=== PATIENT | male | born 1950 | race Caucasian/White ===

== ENCOUNTER 2017-09-19 22:11 | Inpatient (IN) | payer OTHER ==
[~2017-09-19] VITALS: Ht 182.9 cm; Wt 98.0 kg
[2017-09-19] MEDS ORDERED: SODIUM BICARBONATE 8.4 % INJ 50ML VIAL IV ONE (22:40)
[2017-09-19] MEDS ORDERED: EPINEPHrine HCL 1 MG/10 ML SYRG ONE (22:41)
[2017-09-19] MEDS: LIDOCAINE 4MG/ML IV SOLN 500 ML IV SCH (23:03)
[2017-09-19 23:04] LABS: Basophils # (auto) 0 uL; Basophils % (auto) 0.5 % (0.0-2.0); Eosinophils # (auto) 0.1 uL; Eosinophils % (auto) 0.6 % (0.0-7.0); Hematocrit 44.6 % (41.0-53.0); Hemoglobin 14.1 g/dL (13.5-17.5); Lymphocytes # (auto) 4.6 uL; Lymphocytes % (auto) 50.1 % (10.0-50.0); Mean Corpuscular Hgb Conc. 31.7 g/dL (32.0-36.0); Mean Corpuscular Volume 91.4 fL (80.0-100.0); Mean Platelet Volume 9.5 fL (6.9-10.8); Monocytes # (auto) 0.7 uL; Neutrophils # (auto) 3.7 uL; Neutrophils % (auto) 40.8 % (37.0-80.0); Nucleated Red Blood Cells % 0.1 %; Platelet Count (auto) 211 10^3/uL (140-450); White Blood Cell 9.2 10^3/uL (4.4-10.8)
[2017-09-19 23:11] LABS: Urine Bilirubin Negative (Negative); Urine Blood 1+ /uL (Negative); Urine Color Yellow (Yellow); Urine Glucose Normal (Normal); Urine Ketone Negative (Negative); Urine Mucus FEW (None Seen); Urine Nitrite Negative (Negative); Urine RBC 14 /hpf (0 - 3); Urine Sperm PRESENT /hpf (None Seen); Urine Urobilinogen Normal (Negative)
[2017-09-19 23:21] LABS: INR 1.02 (0.9-1.15); Partial Thromboplastin Time 28.7 sec (22.64-33.71); Prothrombin Time 11.1 sec (9.37-12.3)
[2017-09-19 23:23] LABS: Calcium 10.6 mg/dL (8.5-10.1); Magnesium 2.9 mg/dL (1.6-2.6)
[2017-09-19 23:35] LABS: Bilirubin, Total 0.2 mg/dL (0.2-1.0); Total Protein 6.7 g/dL (6.4-8.2)
[2017-09-19 23:38] LABS: Potassium 2.9 mmol/L (3.5-5.1)
[2017-09-20] VITALS (35 sets, daily range): BP systolic 69–120; BP diastolic 52–74
[2017-09-20] MEDS ORDERED: POTASSIUM CHL 20MEQ/50ML 50 ML IV ONE (00:15)
[2017-09-20] MEDS ORDERED: DOPamine 1600MCG/ML D5W 250 ML IV ONE ×2 (00:15→01:05)
[2017-09-20] MEDS ORDERED: SODIUM BICARBONATE 50ML VIAL 100 ML in SODIUM CHLORIDE 0.9% 1,000 ML IV ONE (00:15)
[2017-09-20] MEDS ORDERED: POTASSIUM CHL 10% (20 MEQ/15ML) 15ml ORAL SOLN NG ONE (00:15)
[2017-09-20 00:20] LABS: Allen Test Yes; Base Excess -13.2 mmol/L (-2.0-2.0); Blood 02Sat 97.1 % (96-100); Blood COHb 0.3 % (0.5-1.5); Blood MetHb 0.3 % (0.0-1.5); HCO3 16.8 mmol/L (22-26.0); HHb 2.9 % (0.0-5.0); MODE VENT - A/C; O2Hb 96.5 % (94.0-97.0); PCO2 54.5 mmHg (35.0-45.0); PCO2(T) 54.5 mmHg (35.0-45.0); PO2 149.9 mmHg (80.0-100.0); PO2(T) 149.9 mmHg (80.0-100.0); Sample Type Arterial; pH 7.106 (7.350-7.450)
[2017-09-20] MEDS: MIDAZOLAM DRIP 50 mg/50mL 50 ML IV SCH ×2 (00:58→23:30)
[2017-09-20] MEDS ORDERED: LEVOFLOXACIN 750MG 150 ML IV ONE (01:15)
[2017-09-20] MEDS ORDERED: ONDANSETRON HCL 4 MG/2 ML VIAL IV PRN (02:00)
[2017-09-20] MEDS ORDERED: NITROGLYCERIN 0.4 MG SL TAB SL PRN (02:00)
[2017-09-20] MEDS ORDERED: HYDROmorphone HCL 2 MG/ML VL IV PRN (02:00)
[2017-09-20] MEDS: SODIUM CHLORIDE 0.9% 1,000 ML IV SCH ×2 (02:35→16:09)
[2017-09-20] MEDS: fentaNYL Drip 2500mCg/250mlNS 250 ML IV SCH (03:24)
[2017-09-20] MEDS: NOREPINEPHRINE 8 MG/250ML KIT 250 ML IV SCH ×2 (04:06→23:30)
[2017-09-20 04:18] LABS: Allen Test Yes; Base Excess -6.2 mmol/L (-2.0-2.0); Blood 02Sat 87.8 % (96-100); Blood COHb 0.4 % (0.5-1.5); Blood MetHb 0.2 % (0.0-1.5); HCO3 22.6 mmol/L (22-26.0); HHb 12.1 % (0.0-5.0); MODE VENT - A/C; O2Hb 87.3 % (94.0-97.0); PO2 65.3 mmHg (80.0-100.0); PO2(T) 65.3 mmHg (80.0-100.0); Room 1033-ERT; Sample Type Arterial; pH 7.209 (7.350-7.450)
[2017-09-20 09:16] LABS: Allen Test Yes; Base Excess -3.7 mmol/L (-2.0-2.0); Blood 02Sat 94.2 % (96-100); Blood COHb 0.6 % (0.5-1.5); Blood MetHb 0.3 % (0.0-1.5); HCO3 22.1 mmol/L (22-26.0); HHb 5.7 % (0.0-5.0); MODE VENT - A/C; O2Hb 93.4 % (94.0-97.0); PCO2 42.8 mmHg (35.0-45.0); PCO2(T) 42.8 mmHg (35.0-45.0); PO2 77.7 mmHg (80.0-100.0); PO2(T) 77.7 mmHg (80.0-100.0); Room 1033-ERT; Sample Type Arterial; pH 7.331 (7.350-7.450)
[2017-09-20] MEDS: ENOXAPARIN SOD 30 MG/0.3 ML SYRINGE SC SCH (10:00)
[2017-09-20 10:03] LABS: Lactic Acid w/Reflex 6.1 mmol/L (0.4-2.0)
[2017-09-20 10:06] LABS: REFLEX LACTIC ACID YES OR NO YES
[2017-09-20] MEDS: PANTOPRAZOLE 40 MG/10 ML VIAL IV SCH (10:25)
[2017-09-20] MEDS: LIDOCAINE 4MG/ML IV SOLN 500 ML IV SCH ×2 (12:00→22:29)
[2017-09-20 12:39] LABS: Albumin 3.1 g/dL (3.4-5.0); BUN/Creatinine Ratio 14.3; Bilirubin, Total 0.8 mg/dL (0.2-1.0); Calcium 9.6 mg/dL (8.5-10.1); Potassium 3.3 mmol/L (3.5-5.1); Total Protein 6.8 g/dL (6.4-8.2)
[2017-09-20 12:45] LABS: Hemoglobin 14.9 g/dL (13.5-17.5); Mean Corpuscular Hemoglobin 28.9 pg (28.0-32.0); Mean Corpuscular Hgb Conc. 32.4 g/dL (32.0-36.0); Mean Platelet Volume 8.8 fL (6.9-10.8); Platelet Count (auto) 194 10^3/uL (140-450); Red Cell Distribution Width 14.4 % (11.8-14.3); White Blood Cell 13.4 10^3/uL (4.4-10.8)
[2017-09-20 12:53] LABS: Promyelocytes % 0; Reactive Lymphocytes 0
[2017-09-20] MEDS: DOPamine 1600MCG/ML D5W 250 ML IV SCH (13:35)
[2017-09-20 14:35] LABS: Metamyelocytes % 2; Myelocytes % 1; Platelet Estimate Adequate
[2017-09-20 14:37] LABS: Ovalocytes FEW
[2017-09-20] MEDS ORDERED: ACETAMINOPHEN 650 mg PER 20 mL UD PO ONE (17:15)
[2017-09-20] MEDS ORDERED: ACETAMINOPHEN 650 mg PER 20 mL UD ONE (17:26)
[2017-09-20] MEDS ORDERED: PIPERACILLIN-TAZOB 3.375GM 50 ML IV ONE (22:13)
[2017-09-20] MEDS ORDERED: SIMV-8 PO (23:27)
[2017-09-20] MEDS ORDERED: OMEP20CA74 OR (23:27)
[2017-09-20] MEDS ORDERED: POTA10TA51 PO (23:27)
[2017-09-20] MEDS ORDERED: VERA180T14 PO (23:27)
[2017-09-20] MEDS ORDERED: TAMS0.4C36 PO (23:27)
[2017-09-20] MEDS ORDERED: VALS160T53 PO (23:27)
[2017-09-21] VITALS (104 sets, daily range): BP systolic 58–182; BP diastolic 41–115
[2017-09-21 01:20] LABS: Base Excess -6.3 mmol/L (-2.0-2.0); Blood 02Sat 96.7 % (96-100); Blood COHb 1.1 % (0.5-1.5); Blood MetHb 0.6 % (0.0-1.5); HCO3 18.7 mmol/L (22-26.0); HHb 3.2 % (0.0-5.0); MODE VENT - A/C; O2Hb 95.1 % (94.0-97.0); PCO2 36.2 mmHg (35.0-45.0); PO2 97.5 mmHg (80.0-100.0); PO2(T) 100.5 mmHg (80.0-100.0); Sample Type Arterial; Spont Vt 1149; pH 7.332 (7.350-7.450)
[2017-09-21] MEDS: DOPamine 1600MCG/ML D5W 250 ML IV SCH ×3 (02:52→18:54)
[2017-09-21 05:14] LABS: Basophils # (auto) 0 uL; Basophils % (auto) 0.1 % (0.0-2.0); Eosinophils # (auto) 0 uL; Hematocrit 45.2 % (41.0-53.0); Hemoglobin 14.9 g/dL (13.5-17.5); Lymphocytes % (auto) 4.8 % (10.0-50.0); Mean Corpuscular Hemoglobin 28.3 pg (28.0-32.0); Mean Corpuscular Hgb Conc. 32.9 g/dL (32.0-36.0); Mean Corpuscular Volume 86.1 fL (80.0-100.0); Mean Platelet Volume 9.3 fL (6.9-10.8); Monocytes # (auto) 1.3 uL; Monocytes % (auto) 6.4 % (0.0-12.0); Neutrophils % (auto) 88.7 % (37.0-80.0); Platelet Count (auto) 176 10^3/uL (140-450); Red Cell Distribution Width 14.6 % (11.8-14.3); White Blood Cell 20.2 10^3/uL (4.4-10.8)
[2017-09-21 05:23] LABS: Lactic Acid w/Reflex 3.1 mmol/L (0.4-2.0)
[2017-09-21 05:25] LABS: REFLEX LACTIC ACID YES OR NO YES
[2017-09-21 05:29] LABS: Albumin 2.7 g/dL (3.4-5.0); BUN/Creatinine Ratio 17.1; Bilirubin, Total 1.4 mg/dL (0.2-1.0); Calcium 7.9 mg/dL (8.5-10.1); Magnesium 1.7 mg/dL (1.6-2.6); Phosphorus 4.5 mg/dL (2.5-4.90); Total Protein 6.5 g/dL (6.4-8.2)
[2017-09-21] MEDS ORDERED: PIPERACILLIN-TAZOB 3.375GM 50 ML IV ONE (06:20)
[2017-09-21] MEDS: SODIUM CHLORIDE 0.9% 1,000 ML IV SCH ×3 (06:40→23:17)
[2017-09-21] MEDS: MIDAZOLAM DRIP 50 mg/50mL 50 ML IV SCH (06:41)
[2017-09-21] MEDS: NOREPINEPHRINE 8 MG/250ML KIT 250 ML IV SCH ×3 (06:41→23:17)
[2017-09-21 07:33] LABS: Base Excess -6.9 mmol/L (-2.0-2.0); Blood 02Sat 93.1 % (96-100); Blood COHb 1.1 % (0.5-1.5); Blood MetHb 0.4 % (0.0-1.5); HCO3 18.9 mmol/L (22-26.0); HHb 6.8 % (0.0-5.0); MODE VENT - A/C; O2Hb 91.7 % (94.0-97.0); PCO2 38.8 mmHg (35.0-45.0); PCO2(T) 40.4 mmHg (35.0-45.0); PIP 42; PO2 73.3 mmHg (80.0-100.0); PO2(T) 77.9 mmHg (80.0-100.0); Sample Type Arterial; Spont Vt 1172; pH 7.305 (7.350-7.450)
[2017-09-21] MEDS ORDERED: PHENYLEPHRINE IV 250 ML IV ONE (07:54)
[2017-09-21] MEDS ORDERED: SODIUM BICARBONATE 8.4 % INJ 50ML VIAL IV ONE ×2 (08:00→16:00)
[2017-09-21] MEDS: PIPERACILLIN-TAZOB 2.25GM 50 ML IV SCH ×4 (08:22→23:44)
[2017-09-21] MEDS: PHENYLEPHRINE INJ 20 MG in SODIUM CHL 0.9% 250 ML IV SCH ×4 (08:23→20:24)
[2017-09-21] MEDS: LIDOCAINE 4MG/ML IV SOLN 500 ML IV SCH ×2 (09:36→18:54)
[2017-09-21] MEDS: ENOXAPARIN SOD 30 MG/0.3 ML SYRINGE SC SCH ×2 (09:41→10:00)
[2017-09-21] MEDS: ACETAMINOPHEN 650 mg PER 20 mL UD PO PRN (09:41)
[2017-09-21] MEDS: PANTOPRAZOLE 40 MG/10 ML VIAL IV SCH (09:41)
[2017-09-21 10:08] LABS: Base Excess -6.1 mmol/L (-2.0-2.0); Blood 02Sat 90.3 % (96-100); Blood COHb 1.4 % (0.5-1.5); Blood MetHb 0.5 % (0.0-1.5); HCO3 21.9 mmol/L (22-26.0); HHb 9.5 % (0.0-5.0); MODE VENT - A/C; O2Hb 88.6 % (94.0-97.0); PCO2 52.7 mmHg (35.0-45.0); PCO2(T) 56.5 mmHg (35.0-45.0); PIP 21; PO2 66.7 mmHg (80.0-100.0); PO2(T) 74.4 mmHg (80.0-100.0); Sample Type Arterial; Spont Vt 740; pH 7.236 (7.350-7.450)
[2017-09-21] MEDS: VASOPRESSIN 50 UNITS in SODIUM CHL 0.9% 247.5 ML IV SCH (11:00)
[2017-09-21] MEDS: fentaNYL Drip 2500mCg/250mlNS 250 ML IV SCH (11:28)
[2017-09-21 14:53] LABS: Base Excess -6.4 mmol/L (-2.0-2.0); Blood 02Sat 91.7 % (96-100); Blood COHb 1.5 % (0.5-1.5); Blood MetHb 0.4 % (0.0-1.5); HCO3 20.5 mmol/L (22-26.0); HHb 8.1 % (0.0-5.0); MODE VENT - A/C; PCO2 46.2 mmHg (35.0-45.0); PCO2(T) 48.7 mmHg (35.0-45.0); PIP 38; PO2 69.4 mmHg (80.0-100.0); PO2(T) 75.3 mmHg (80.0-100.0); Sample Type Arterial; Spont Vt 585; pH 7.266 (7.350-7.450)
[2017-09-21] MEDS ORDERED: PIPERACILLIN-TAZOB 3.375GM 50 ML IV SCH (22:00)
[2017-09-22] VITALS (71 sets, daily range): BP systolic 6–227; BP diastolic 6–219
[2017-09-22 00:59] LABS: Base Excess -7.2 mmol/L (-2.0-2.0); Blood 02Sat 90.3 % (96-100); Blood COHb 1.4 % (0.5-1.5); Blood MetHb 0.2 % (0.0-1.5); HCO3 21.5 mmol/L (22-26.0); HHb 9.5 % (0.0-5.0); MODE VENT - A/C; O2Hb 88.9 % (94.0-97.0); PCO2 56.7 mmHg (35.0-45.0); PCO2(T) 56.7 mmHg (35.0-45.0); PO2 66.5 mmHg (80.0-100.0); PO2(T) 66.5 mmHg (80.0-100.0); Sample Type Arterial; pH 7.197 (7.350-7.450)
[2017-09-22] MEDS ORDERED: SODIUM BICARBONATE 8.4 % INJ 50ML VIAL IV ONE (01:30)
[2017-09-22] MEDS ORDERED: SODIUM BICARB 50ML SYR 150 ML in D5W 5% 1,000 ML IV SCH (01:30)
[2017-09-22] MEDS ORDERED: SODIUM BICARBONATE 8.4% INJ 50ML SYRINGE ONE (01:31)
[2017-09-22] MEDS: ALBUTEROL SULF 2.5 MG/0.5ML(0.5%) NEB SOLN NEB SCH ×4 (01:48→14:00)
[2017-09-22] MEDS: IPRATROPIUM BROM 0.5 MG/2.5ML INH SOL NEB SCH ×4 (01:48→14:00)
[2017-09-22] MEDS: ACETAMINOPHEN 650 mg PER 20 mL UD PO PRN (02:34)
[2017-09-22] MEDS: fentaNYL Drip 2500mCg/250mlNS 250 ML IV SCH (02:39)
[2017-09-22] MEDS: NOREPINEPHRINE 8 MG/250ML KIT 250 ML IV SCH ×2 (03:00→07:37)
[2017-09-22] MEDS: PHENYLEPHRINE INJ 20 MG in SODIUM CHL 0.9% 250 ML IV SCH ×2 (04:44→12:09)
[2017-09-22] MEDS: MIDAZOLAM DRIP 50 mg/50mL 50 ML IV SCH (05:07)
[2017-09-22 05:24] LABS: Hematocrit 39.6 % (41.0-53.0); Hemoglobin 13.2 g/dL (13.5-17.5); Mean Corpuscular Hemoglobin 28.6 pg (28.0-32.0); Mean Corpuscular Hgb Conc. 33.2 g/dL (32.0-36.0); Mean Corpuscular Volume 86.2 fL (80.0-100.0); Mean Platelet Volume 9.2 fL (6.9-10.8); Platelet Count (auto) 161 10^3/uL (140-450); Red Cell Distribution Width 14.8 % (11.8-14.3); White Blood Cell 18.9 10^3/uL (4.4-10.8)
[2017-09-22 05:39] LABS: BUN/Creatinine Ratio 19.5; Calcium 7.5 mg/dL (8.5-10.1); Magnesium 1.6 mg/dL (1.6-2.6)
[2017-09-22 05:44] LABS: Myelocytes % 0; Promyelocytes % 0; Reactive Lymphocytes 0
[2017-09-22] MEDS: PIPERACILLIN-TAZOB 2.25GM 50 ML IV SCH ×2 (06:08→13:04)
[2017-09-22] MEDS: VASOPRESSIN 50 UNITS in SODIUM CHL 0.9% 247.5 ML IV SCH (06:11)
[2017-09-22 06:58] LABS: Metamyelocytes % 2; Platelet Estimate Adequate; RBC Morphology Normal
[2017-09-22] MEDS: LIDOCAINE 4MG/ML IV SOLN 500 ML IV SCH (07:50)
[2017-09-22 07:58] LABS: Base Excess -6.3 mmol/L (-2.0-2.0); Blood 02Sat 94.7 % (96-100); Blood COHb 1.1 % (0.5-1.5); Blood MetHb 0.1 % (0.0-1.5); HCO3 22.4 mmol/L (22-26.0); HHb 5.2 % (0.0-5.0); MODE VENT - PCV; O2Hb 93.6 % (94.0-97.0); PCO2 58.1 mmHg (35.0-45.0); PCO2(T) 58.1 mmHg (35.0-45.0); PIP 14; PO2 87.2 mmHg (80.0-100.0); PO2(T) 87.2 mmHg (80.0-100.0); Sample Type Arterial; pH 7.203 (7.350-7.450)
[2017-09-22] MEDS: PANTOPRAZOLE 40 MG/10 ML VIAL IV SCH (10:27)
[2017-09-22] MEDS: ENOXAPARIN SOD 30 MG/0.3 ML SYRINGE SC SCH (10:28)
[2017-09-22] MEDS: MAGNESIUM SULFATE 1GM/100ML 100 ML IV SCH ×2 (10:28→11:50)
[2017-09-22] MEDS ORDERED: LINEZOLID 600MG/300ML 300 ML IV SCH (11:00)
[2017-09-22] MEDS ORDERED: PHENYLEPHRINE IV 250 ML IV ONE (12:03)
[2017-09-22 12:52] LABS: Base Excess -4.6 mmol/L (-2.0-2.0); Blood 02Sat 91.7 % (96-100); Blood COHb 0.7 % (0.5-1.5); Blood MetHb 0.2 % (0.0-1.5); HCO3 25.6 mmol/L (22-26.0); HHb 8.2 % (0.0-5.0); MODE VENT - PCV; O2Hb 90.9 % (94.0-97.0); PCO2 73.5 mmHg (35.0-45.0); PCO2(T) 73.5 mmHg (35.0-45.0); PO2 76.7 mmHg (80.0-100.0); PO2(T) 76.7 mmHg (80.0-100.0); Sample Type Arterial; pH 7.159 (7.350-7.450)
[2017-09-22] MEDS ORDERED: ATRACURIUM BESYLATE 1,000 MG in D5W 5% 150 ML IV ONE (13:15)
== END 2017-09-22 17:34 | disposition expired | DRG 871 ==
LOC: EDAGE 22:11 → EDBD 22:16 → ER 22:16 → TELE 22:17 → ICU WEST 09-20 18:36
PROVIDERS: ADMIT Nurse Practitioner; ATTEND Internal Medicine
PROC: 5A1945Z Respiratory Ventilation, 24-96 Consecutive Hours (ICD-10-PCS; principal; 2017-09-19)
PROC: 0BH17EZ Insertion of Endotracheal Airway into Trachea, Via Natural or Artificial Opening (ICD-10-PCS; 2017-09-19)
PROC: 02H633Z Insertion of Infusion Device into Right Atrium, Percutaneous Approach (ICD-10-PCS; 2017-09-20)
PROC: 5A12012 Performance of Cardiac Output, Single, Manual (ICD-10-PCS; 2017-09-22)
DX: A41.9 Sepsis, unspecified organism (principal); G93.41 Metabolic encephalopathy; I46.9 Cardiac arrest, cause unspecified; J96.00 Acute respiratory failure, unspecified whether with hypoxia or hypercapnia; N17.9 Acute kidney failure, unspecified; R65.21 Severe sepsis with septic shock; I47.2 Ventricular tachycardia; G93.1 Anoxic brain damage, not elsewhere classified; N18.4 Chronic kidney disease, stage 4 (severe); E87.2 Acidosis; I13.0 Hypertensive heart and chronic kidney disease with heart failure and stage 1 through stage 4 chronic kidney disease, or unspecified chronic kidney disease; I49.01 Ventricular fibrillation; Z95.1 Presence of aortocoronary bypass graft; E11.22 Type 2 diabetes mellitus with diabetic chronic kidney disease; E11.65 Type 2 diabetes mellitus with hyperglycemia; E78.5 Hyperlipidemia, unspecified; I25.10 Atherosclerotic heart disease of native coronary artery without angina pectoris; F10.129 Alcohol abuse with intoxication, unspecified; I50.9 Heart failure, unspecified; I25.5 Ischemic cardiomyopathy; R79.1 Abnormal coagulation profile; R74.0 Nonspecific elevation of levels of transaminase and lactic acid dehydrogenase [LDH]; I70.0 Atherosclerosis of aorta
CPT/HCPCS: 31500; 36415; 36600; 51702; 70450; 71010; 80048; 80053; 80307; 81001; 82805; 82962; 83036; 83605; 83735; 84100; 84484; 85007; 85025; 85027; 85379; 85610; 85730; 86850; 86900; 86901; 87040; 87070; 87077; 87081; 87086; 87186; 87205; 87493; 92950; 93005; 93306; 94002; 94003; 94640; 95819; 96374; C9113; J1956; J2250; J2543; J3010; J3490; J7060